=== PATIENT | male | born 1940 | race Caucasian/White ===

== ENCOUNTER 2016-08-07 06:43 | Day surgery (SDC) | payer MEDICARE, OTHER ==
[2016-08-07] MEDS ORDERED: PHENYLEPHRINE 2.5% OPHTH 2 ML DROPS ONE (06:49)
[2016-08-07] MEDS ORDERED: PHENYLEPHRINE 2.5% OPHTH 2 ML DROPS OPTH ONE (07:00)
[2016-08-07] MEDS ORDERED: PROPARACAINE 0.5% OPHTH DROPS 15 ML OPTH ONE (07:00)
[2016-08-07] MEDS ORDERED: KETOROLAC 0.45% OPHTH DROPS OPTH ONE (07:00)
[2016-08-07] MEDS ORDERED: CYCLOPENTOLATE 1% OPHTH DROPS 2 ML OPTH ONE (07:00)
[2016-08-07] MEDS ORDERED: LACTATED RINGERS 500 ML IV ONE (07:09)
[2016-08-07] MEDS ORDERED: LIDOCAINE-MPF 2% 5 ML VIAL IM ONE (08:06)
[2016-08-07] MEDS ORDERED: PROPOFOL 200 MG/20 ML VIAL IVP ONE (08:06)
[2016-08-07] MEDS ORDERED: MIDAZOLAM 2 MG/2 ML VIAL IVP ONE (08:06)
[2016-08-07] MEDS ORDERED: EPINEPHrine 1 MG/ML AMP IVP ONE (08:07)
[2016-08-07] MEDS ORDERED: CHONDR SULF/HYALURONATE SYRINGE IO ONE (08:07)
[2016-08-07] MEDS ORDERED: BRIMONIDINE 0.2% OPHTH DROPS 5 ML OPTH ONE (08:07)
[2016-08-07] MEDS ORDERED: TRIAMCIN/MOXIFLOX/VANCO 1 ML VIAL IO ONE (08:08)
[2016-08-07] MEDS ORDERED: TIMOLOL 0.5% OPHTH DROPS OPTH ONE (08:08)
[2016-08-07] MEDS ORDERED: BSS/LIDOCAINE/EPINEPHRINE 1 ML SYRINGE IO ONE (08:08)
[2016-08-07 08:32] VITALS: BP 108/67
--- NOTE | 2016-08-07 14:41 | OPERATIVE REPORT ---
DATE OF SURGERY: 08/07/2016 00:00:00 PREOPERATIVE DIAGNOSIS: Visually significant cataract, right eye. This is his first cataract surgery. POSTOPERATIVE DIAGNOSIS: Visually significant cataract, right eye. This is his first cataract surgery. NAME OF PROCEDURE: Phacoemulsification with posterior chamber intraocular lens implant, right eye. SURGEON: Yves Duran MD ANESTHESIA: Monitored anesthesia care. COMPLICATIONS: Rupture of the posterior capsule without vitreous loss, requiring placement of a sulcus fixated intraocular lens. OPERATIVE INDICATIONS: This is a 76-year-old man with progressive vision loss in the right eye due to 2+ nuclear sclerotic and 2+ cortical cataract. Best corrected visual acuity was 20/50 with glare to 20/400 in the right eye. Indications for surgery were overall decrease in vision, difficulty seeing words on a computer screen, difficulty reading, difficulty driving in low light or at night, difficulty driving at night because of headlights from other vehicles and street lights, and difficulty with glare or bright lights in any situation. He was consented at length concerning the risks and benefits of cataract surgery after which he expressed a desire to proceed with surgery. OPERATIVE PROCEDURE: The patient was taken into OR #2 and placed under monitored anesthesia care. A surgical time-out was conducted confirming correct patient, correct procedure and correct surgical site. He was placed under the LenSx laser and his eye docked to the laser interface. The laser performed the capsulotomy, lens softening, phaco wounds, and arcuate keratotomy incisions. He was then moved to the operating microscope, given topical anesthesia, and then prepped and draped in the usual sterile fashion. The eye was entered at the 12 and 9 o'clock positions. Intracameral Shugarcaine was injected into the anterior chamber, followed by Viscoat. The capsulorrhexis flap created by the LenSx laser was removed from the anterior chamber. The nucleus was hydrodissected; however, during hydrodissection there was a noticeable drop in the crystalen lens, usually indicative of blowout of the posterior capsule. However, the lens was prolapsed out of the capsule, pulled into the iris plane and the nucleus was phacoemulsified. There was thick cortex remaining in the capsule fornices but it was obvious that there was a large rupture in the posterior capsule. The rest of the cortex was not attempted to be removed and, instead, Provisc was injected into the ciliary sulcus and a 3-piece IOL of 21.5 diopters was injected into the ciliary sulcus. At no time was vitreous noticed to be coming from the posterior chamber into the anterior chamber. Approximately 0.8 mL of a mixture of triamcinolone, moxifloxacin and vancomycin was injected subconjunctivally in the superior quadrant for infection and inflammation prophylaxis. I/A was used to evacuate the viscoelastic materials from the anterior chamber and again no vitreous was noted to be coming into the anterior chamber. The eye was inflated to physiologic pressure using balanced salt solution and found to be watertight. The patient was taken from the operating room in good condition, informed of the posterior capsular rupture, and given postoperative instructions. JOB #: [id number] EXT JOB #:[id number]
== END 2016-08-07 06:44 | disposition home or self-care (01) ==
LOC: SDS 06:43
PROVIDERS: ATTEND Ophthalmology
PROC: 08RK3JZ Replacement of Left Lens with Synthetic Substitute, Percutaneous Approach (ICD-10-PCS; principal; 2016-08-07 08:00)
DX: H25.812 Combined forms of age-related cataract, left eye (principal); J44.9 Chronic obstructive pulmonary disease, unspecified; I10 Essential (primary) hypertension; E78.00 Pure hypercholesterolemia, unspecified; I25.10 Atherosclerotic heart disease of native coronary artery without angina pectoris; Z87.891 Personal history of nicotine dependence; Z83.511 Family history of glaucoma; Z82.49 Family history of ischemic heart disease and other diseases of the circulatory system; Z79.82 Long term (current) use of aspirin
CPT/HCPCS: 66984; A9270; V2632

== ENCOUNTER 2016-12-23 13:03 | Outpatient (CLI) | payer MEDICARE, OTHER | END 2016-12-23 13:04 | disposition home or self-care (01) | LOC: SC 13:03 | PROVIDERS: ATTEND Internal Medicine Pulmonary Disease | DX: G47.30 Sleep apnea, unspecified (principal); G47.10 Hypersomnia, unspecified; R06.83 Snoring; G47.8 Other sleep disorders | CPT/HCPCS: 99203; G0463; 99212 ==

== ENCOUNTER 2017-04-21 10:34 | Outpatient (CLI) | payer MEDICARE, OTHER | END 2017-04-21 10:35 | disposition home or self-care (01) | LOC: SC 10:34 | PROVIDERS: ATTEND Nurse Practitioner Family | DX: G47.30 Sleep apnea, unspecified (principal); G47.10 Hypersomnia, unspecified; R06.83 Snoring | CPT/HCPCS: 99214; G0463; 99212 ==

== ENCOUNTER 2017-08-05 08:15 | Outpatient (CLI) | payer MEDICARE, OTHER ==
[2017-08-05 12:36] LABS: BASOPHILS % (AUTO) 0.7 %; EOSINOPHILS # (AUTO) 0.1 10^3/uL (0.0-0.7); EOSINOPHILS % (AUTO) 1.8 %; HGB - HEMOGLOBIN 15.9 g/dL (14.0-18.0); LYMPHOCYTES # (AUTO) 1.8 10^3/uL (1.5-3.5); LYMPHOCYTES % (AUTO) 28.9 %; MEAN CORPUSCULAR HEMOGLOBIN 32.3 pg (27.0-31.0); MEAN CORPUSCULAR HGB CONC 33.4 g/dL (32.0-36.0); MEAN CORPUSCULAR VOLUME 96.8 fL (80.0-94.0); MEAN PLATELET VOLUME 9.9 fL (7.4-11.4); MONOCYTES # (AUTO) 0.6 10^3/uL (0.0-1.0); NEUTROPHILS # (AUTO) 3.6 10^3/uL (1.5-6.6); NEUTROPHILS % (AUTO) 58.6 %; PLT - PLATELET COUNT 181 10^3/uL (130-450); RED BLOOD COUNT 4.92 10^6/uL (4.70-6.10); RED CELL DISTRIBUTION WIDTH 13.8 % (12.0-15.0); WHITE BLOOD COUNT 6.1 x10^3/uL (4.8-10.8)
[2017-08-05 12:45] LABS: CALCIUM 8.7 mg/dL (8.5-10.3); CREATININE 1.1 mg/dL (0.6-1.2)
== END 2017-08-05 08:16 | disposition home or self-care (01) ==
LOC: LAB.WCP 08:15
PROVIDERS: ATTEND Family Medicine
DX: I10 Essential (primary) hypertension (principal); E78.5 Hyperlipidemia, unspecified; R10.9 Unspecified abdominal pain
CPT/HCPCS: 36415; 80048; 85025

== ENCOUNTER 2018-05-14 15:01 | Outpatient (CLI) | payer MEDICARE, OTHER ==
--- NOTE | 2018-05-14 15:53 | XRAY Report ---
Reason: BACK PAIN,CHRONIC Procedure Date: 05/14/2018 Accession Number: [id number] / [id number] Procedure: WCP - Lumbar Spine 2 View CPT Code: FULL RESULT: EXAM: LUMBOSACRAL SPINE RADIOGRAPHY EXAM DATE: 05/14/2018 03:18 PM. CLINICAL HISTORY: Back pain, chronic. COMPARISONS: XR LUMBOSACRAL SPINE 4 VIEWS 05/18/2008 11:48 AM. TECHNIQUE: 2 views. FINDINGS: Alignment: Compared to 2008 there is significant interval increase in levoconvex thoracolumbar scoliosis centered about L2, now at least moderate. No listhesis. Bones: 4 qvj-bqv-zsfocar lumbar vertebral bodies are present, vestigial ribs as seen on L1. No fractures or bone lesions. Disks: Disk space heights are mostly maintained. Facets: Significant multilevel facet arthropathy. Sacroiliac Joints: Unremarkable. Soft Tissues: Normal. The visualized bowel gas pattern is normal. IMPRESSION: Significant interval increase in thoracolumbar scoliosis. RADIA
== END 2018-05-14 15:02 | disposition home or self-care (01) ==
LOC: DI.WCP 15:01
PROVIDERS: ATTEND Physician Assistant
DX: M41.85 Other forms of scoliosis, thoracolumbar region (principal)
CPT/HCPCS: 72100

== ENCOUNTER 2018-11-14 21:04 | Outpatient (CLI) | payer MEDICARE, OTHER | END 2018-11-14 21:05 | disposition short-term general hospital (02) | LOC: EMS 21:04 | PROVIDERS: ATTEND Surgery | DX: R10.32 Left lower quadrant pain (principal); R39.198 Other difficulties with micturition | CPT/HCPCS: A0425; A0429; A0888 ==

== ENCOUNTER 2019-04-08 08:20 | Outpatient (CLI) | payer MEDICARE, OTHER ==
[2019-04-08 13:59] LABS: ALBUMIN 4.4 g/dL (3.2-5.5); ALBUMIN/GLOBULIN RATIO 1.6 (1.0-2.2); ALKALINE PHOSPHATASE 61 IU/L (42-121); ALT ALANINE AMINOTRANSFERASE 18 IU/L (10-60); AST ASPARTATE AMINOTRANSFERASE 22 IU/L (10-42); BILIRUBIN,TOTAL 1.5 mg/dL (0.2-1.0); BUN - BLOOD UREA NITROGEN 26 mg/dL (6-20); CARBON DIOXIDE - CO2 26 mmol/L (21-32); CHLORIDE 106 mmol/L (101-111); CHOL/HDL RATIO 2.6 (<5.0); CHOLESTEROL 166 mg/dL; CREATININE 1.2 mg/dL (0.6-1.2); GFR - MDRD 58 (>89); GLUCOSE 102 mg/dL (70-100); HDL CHOLESTEROL 64 mg/dL; LDL CHOLESTEROL,CALCULATED 82 mg/dL; LDL/HDL RATIO 1.3 (<3.6); SODIUM 138 mmol/L (135-145); TOTAL PROTEIN 7.1 g/dL (6.7-8.2); VLDL CHOLESTEROL 20 mg/dL
== END 2019-04-08 23:59 | disposition home or self-care (01) ==
LOC: LAB.WCP 08:20
PROVIDERS: ATTEND Family Medicine
DX: I10 Essential (primary) hypertension (principal); E78.5 Hyperlipidemia, unspecified
CPT/HCPCS: 36415; 80053; 80061; 83721; 84443

== ENCOUNTER 2019-07-23 03:22 | Outpatient (CLI) | payer MEDICARE, OTHER | END 2019-07-23 03:23 | disposition short-term general hospital (02) | LOC: EMS 03:22 | PROVIDERS: ATTEND Surgery | DX: R10.10 Upper abdominal pain, unspecified (principal); R50.9 Fever, unspecified; R06.02 Shortness of breath; R05 Cough | CPT/HCPCS: A0425; A0429; A0888 ==

== ENCOUNTER 2019-08-16 14:02 | Outpatient (CLI) | payer MEDICARE, OTHER ==
--- NOTE | 2019-08-16 15:02 | XRAY Report ---
Reason: COPD, SITUS INVERSUS, PLEURAL EFFUSION Procedure Date: 08/16/2019 Accession Number: [id number] / [id number] Procedure: WCP - Chest 2 View X-Ray CPT Code: 66786 Final Report FULL RESULT: PROCEDURE: Chest 2 View X-Ray INDICATIONS: COPD, SITUS INVERSUS, PLEURAL EFFUSION TECHNIQUE: 2 view(s) of the chest. COMPARISON: Multiple prior chest radiographs, most recent a chest radiograph obtained 08/01/2019 and [facility] FINDINGS: Decreased size of left pleural effusion, now trace. Improved but not entirely resolved groundglass airspace opacity in the left lung base and medial aspect of the left lung. The right lung and pleural space are clear. 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 IMPRESSION: Improved but not entirely resolved opacity in the left lung base. Continued follow-up recommended to document complete resolution. Left pleural effusion has decreased in size and is now trace. Reviewed by: Gustavo Scott MD on 08/16/2019 3:01 PM PDT Approved by: Gustavo Scott MD on 08/16/2019 3:01 PM PDT Station ID: [id number]
== END 2019-08-16 23:59 | disposition home or self-care (01) ==
LOC: DI.WCP 14:02
PROVIDERS: ATTEND Family Medicine
DX: J90 Pleural effusion, not elsewhere classified (principal); R91.8 Other nonspecific abnormal finding of lung field; Q89.3 Situs inversus
CPT/HCPCS: 71046

== ENCOUNTER 2019-10-15 12:45 | Outpatient (CLI) | payer MEDICARE, OTHER ==
--- NOTE | 2019-10-15 23:17 | CT Report ---
PROCEDURE: CHEST WO INDICATIONS: COPD, PLEURAL EFFUSION, PLEURAL ABSCESS, SITUS LA TECHNIQUE: Noncontrast 5 mm thick sections acquired from the pulmonary apices to the posterior costophrenic angl es. 7 mm thick coronal and sagittal MIP reformats were then acquired. For radiation dose reduction, the following was used: automated exposure control, adjustment of mA and/or kV according to patient size. COMPARISON: Chest radiographs dated 08/16/2019 and 09/15/2019 FINDINGS: Image quality: Excellent. Lungs and pleura: No acute air space opacities. There is mild pleural thickening and likely scarring involving the posterior, periphery of the left lower lobe. Possible trace left pleural effusion. The re is associated subsegmental atelectasis of the left lower lobe. No evidence for pleural abscess or loculated pleural effusion. Bilateral pulmonary emphysematous change. No pneumothorax. Central and p eripheral airways are patent and normal in caliber. Mediastinum: There is situs inversus. Heart size is normal. No pericardial effusion. No mediastinal adenopathy by size criteria. There is enlargement of the proximal aspect ascending thoracic aorta wi th the aortic root measuring approximately 5.5 x 5.0 cm in transverse dimension measured on axial kendrick ge 27, series 3. The central pulmonary arteries are normal in size. Esophagus is normal in caliber. No hiatal hernia. Bones and chest wall: No suspicious bony lesions. No vertebral body compression fractures. No axil margareth or supraclavicular adenopathy by size criteria. The thyroid is normal in size. Abdomen: There are bilateral punctate nonobstructing nephroliths. Multiple scattered subcentimeter h epatic hypodensities are incompletely characterized but likely represent cysts versus hemangiomas. Re mainder of the visualized upper abdominal solid organs and bowel loops appear normal in the absence o f contrast. IMPRESSION: 1. Mild pleural thickening and likely scarring involving the posterior, peripheral margins of the lef t lung base. No evidence for pleural abscess or loculated pleural effusion. Subsegmental atelectasis is also present. 2. Pulmonary emphysematous change. 3. 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 [facility] clinical and imaging surveillance. 4. Nonobstructive bilateral nephrolithiasis. 5. Multiple scattered hepatic hypodensities which are too small to accurately characterize but likely represent cysts versus hemangiomas. Reviewed by: Donnell Brown MD on 10/15/2019 11:16 PM PDT Approved by: Donnell Brown MD on 10/15/2019 11:16 PM PDT Station ID: [id number]
== END 2019-10-15 12:46 | disposition home or self-care (01) ==
LOC: DI 12:45
PROVIDERS: ATTEND Family Medicine
DX: J43.9 Emphysema, unspecified (principal); Q89.3 Situs inversus; J90 Pleural effusion, not elsewhere classified; J86.9 Pyothorax without fistula; N20.0 Calculus of kidney; I71.4 Abdominal aortic aneurysm, without rupture
CPT/HCPCS: 71250

== ENCOUNTER 2019-10-16 20:46 | Outpatient (CLI) | payer MEDICARE, OTHER | END 2019-10-16 20:47 | disposition short-term general hospital (02) | LOC: EMS 20:46 | PROVIDERS: ATTEND Surgery | DX: R07.9 Chest pain, unspecified (principal) | CPT/HCPCS: A0425; A0427 ==

== ENCOUNTER 2020-03-12 13:05 | Outpatient (CLI) | payer MEDICARE, OTHER ==
--- NOTE | 2020-03-12 13:37 | SLEEP CARE CONSULTATION ---
Information from patient questionnaire entered by Glenn Mabry. I have reviewed and concur with the information entered by Glenn Mabry. This document represents the service I personally performed and the decisions made by me, Anna Calles MD, [facility]. History of Present Illness Service Date and Time: 03/12/2020 1305 Previous diagnosis: Other (No significant sleep disordered breathing) AHI: 4.9 Reason for follow up: annual (Last seen 04/2017, no CPAP) Year and Where: 2018 [facility] additional information: HPI: Mr. Cordero returned for follow up of loud snore. He had a sleep study here in 2018 that was negative for significant sleep disordered breathing (the AHI was 4.9 and andrzej oxygen saturation was 88%). Because supine AHI was elevated at 22.5, the patient was advised to not sleep on his back. He states that he now sleeps mostly on his back because of should pain on both sides. He complains of waking up frequently at night and feeling sleepy during the day. Subjective Initial [place] Sleepiness Scale score: 8 (in 2017) Current [place] Sleepiness Scale score: 8 Allergies and Home Medications Drug allergies reviewed: Yes Home medication list reviewed: Yes Review of Systems Review of systems same as previous: Yes Physical Exam Vital signs obtained and entered by: To minimize the risk of COVID-19 exposure, detailed exam was not performed. Height: 6 ft 1 in Weight: 180 lb Body Mass Index: 23.7 BMI Classification: Healthy weight Impression and Plan IMPRESSION: 1. Possible obstructive sleep apnea-hypopnea because he now sleep mostly on his back. Another sleep study will be performed. He would like a home sleep apnea test (HSAT) because he could not sleep much the last time he was here for the in-laboratory polysomnography. With moderately elevated supine AHI of 22.5, I believe the home sleep apnea test (HSAT) is adequate in diagnosing the sleep-disordered breathing. PLAN: 1. Order a home sleep apnea test (HSAT). 2. Return for a follow up after the test. Visit Type: In Office Time Spent with Patient (minutes): 15 Provider Statement: I spent 100% of the Face to Face Visit with the patient with greater than 50% spent counseling the patient and coordination of care.
== END 2020-03-12 13:06 | disposition home or self-care (01) ==
LOC: SC 13:05
PROVIDERS: ATTEND Internal Medicine Pulmonary Disease
DX: R06.83 Snoring (principal)
CPT/HCPCS: 99212; G0463

== ENCOUNTER 2020-03-30 08:00 | Outpatient (CLI) | payer MEDICARE, OTHER ==
[2020-03-30 12:05] LABS: BASOPHILS % (AUTO) 0.8 %; EOSINOPHILS # (AUTO) 0.1 10^3/uL (0.0-0.7); EOSINOPHILS % (AUTO) 2.1 %; HGB - HEMOGLOBIN 16.1 g/dL (14.0-18.0); LYMPHOCYTES # (AUTO) 1.9 10^3/uL (1.5-3.5); MEAN CORPUSCULAR HEMOGLOBIN 31.9 pg (27.0-31.0); MEAN CORPUSCULAR HGB CONC 32.3 g/dL (32.0-36.0); MEAN PLATELET VOLUME 11.1 fL (7.4-11.4); MONOCYTES # (AUTO) 0.6 10^3/uL (0.0-1.0); MONOCYTES % (AUTO) 10.3 %; NEUTROPHILS # (AUTO) 2.8 10^3/uL (1.5-6.6); NEUTROPHILS % (AUTO) 51.6 %; PLT - PLATELET COUNT 208 10^3/uL (130-450); RED BLOOD COUNT 5.04 10^6/uL (4.70-6.10); RED CELL DISTRIBUTION WIDTH 13.7 % (12.0-15.0); WHITE BLOOD COUNT 5.3 x10^3/uL (4.8-10.8)
[2020-03-30 12:33] LABS: ALBUMIN 4.4 g/dL (3.2-5.5); ALKALINE PHOSPHATASE 61 IU/L (42-121); ALT ALANINE AMINOTRANSFERASE 20 IU/L (10-60); AST ASPARTATE AMINOTRANSFERASE 19 IU/L (10-42); BILIRUBIN,TOTAL 1.3 mg/dL (0.2-1.0); BUN - BLOOD UREA NITROGEN 26 mg/dL (6-20); CALCIUM 9.4 mg/dL (8.5-10.3); CARBON DIOXIDE - CO2 26 mmol/L (21-32); CHLORIDE 102 mmol/L (101-111); CHOL/HDL RATIO 2.5 (<5.0); CHOLESTEROL 184 mg/dL; CREATININE 1.1 mg/dL (0.6-1.2); GLUCOSE 93 mg/dL (70-100); HDL CHOLESTEROL 73 mg/dL; LDL CHOLESTEROL,CALCULATED 93 mg/dL; LDL/HDL RATIO 1.3 (<3.6); TOTAL PROTEIN 6.6 g/dL (6.7-8.2); VLDL CHOLESTEROL 18 mg/dL
== END 2020-03-30 23:59 | disposition home or self-care (01) ==
LOC: LAB.WCP 08:00
PROVIDERS: ATTEND Family Medicine
DX: I10 Essential (primary) hypertension (principal); E78.5 Hyperlipidemia, unspecified
CPT/HCPCS: 36415; 80053; 80061; 83721; 85025

== ENCOUNTER 2020-08-13 14:15 | Outpatient (CLI) | payer MEDICARE, OTHER ==
--- NOTE | 2020-08-13 16:47 | XRAY Report ---
PROCEDURE: Chest 2 View X-Ray INDICATIONS: COPD TECHNIQUE: 2 view(s) of the chest. COMPARISON: None. FINDINGS: Surgical changes and devices: Stable over time. Lungs and pleura: No pleural effusions or pneumothorax. Lungs are relatively hyperexpanded consiste nt with COPD.. Mediastinum: Mediastinal contours are abnormal, with situs inversus totalis appearance. Heart size is normal. Bones and chest wall: No suspicious bony abnormalities. Soft tissues appear unremarkable. IMPRESSION: Situs inversus morphology of the chest, COPD, no pneumonia seen. Prior sternotomy wires. Reviewed by: Ludin Shoemaker MD on 08/13/2020 4:46 PM PDT Approved by: Ludin Shoemaker MD on 08/13/2020 4:46 PM PDT Station ID: [id number]
== END 2020-08-13 14:16 | disposition home or self-care (01) ==
LOC: DI.N 14:15
PROVIDERS: ATTEND Family Medicine
DX: J44.9 Chronic obstructive pulmonary disease, unspecified (principal)

== ENCOUNTER 2020-10-05 08:00 | Outpatient (CLI) | payer MEDICARE, OTHER ==
[2020-10-05 11:47] LABS: BASOPHILS # (AUTO) 0.1 10^3/uL (0.0-0.1); BASOPHILS % (AUTO) 0.9 %; EOSINOPHILS # (AUTO) 0.1 10^3/uL (0.0-0.7); EOSINOPHILS % (AUTO) 1.5 %; HCT - HEMATOCRIT 47.6 % (42.0-52.0); HGB - HEMOGLOBIN 15.5 g/dL (14.0-18.0); LYMPHOCYTES # (AUTO) 1.9 10^3/uL (1.5-3.5); LYMPHOCYTES % (AUTO) 35.9 %; MEAN CORPUSCULAR HEMOGLOBIN 32.1 pg (27.0-31.0); MEAN CORPUSCULAR HGB CONC 32.6 g/dL (32.0-36.0); MEAN CORPUSCULAR VOLUME 98.6 fL (80.0-94.0); MEAN PLATELET VOLUME 11.5 fL (7.4-11.4); MONOCYTES # (AUTO) 0.6 10^3/uL (0.0-1.0); MONOCYTES % (AUTO) 10.4 %; NEUTROPHILS # (AUTO) 2.7 10^3/uL (1.5-6.6); NEUTROPHILS % (AUTO) 51.1 %; PLT - PLATELET COUNT 200 10^3/uL (130-450); RED BLOOD COUNT 4.83 10^6/uL (4.70-6.10); RED CELL DISTRIBUTION WIDTH 13.3 % (12.0-15.0); WHITE BLOOD COUNT 5.3 x10^3/uL (4.8-10.8)
[2020-10-05 12:27] LABS: BUN - BLOOD UREA NITROGEN 27 mg/dL (6-20); CALCIUM 9.1 mg/dL (8.5-10.3); CARBON DIOXIDE - CO2 25 mmol/L (21-32); CHLORIDE 105 mmol/L (101-111); CHOL/HDL RATIO 2.4 (<5.0); CHOLESTEROL 166 mg/dL; CREATININE 1.1 mg/dL (0.6-1.2); GFR - MDRD 64 (>89); GLUCOSE 98 mg/dL (70-100); HDL CHOLESTEROL 68 mg/dL; LDL CHOLESTEROL,CALCULATED 84 mg/dL; LDL/HDL RATIO 1.2 (<3.6); POTASSIUM 3.9 mmol/L (3.5-5.0); SODIUM 140 mmol/L (135-145); TRIGLYCERIDES 70 mg/dL; VLDL CHOLESTEROL 14 mg/dL
== END 2020-10-05 23:59 | disposition home or self-care (01) ==
LOC: LAB.WCP 08:00
PROVIDERS: ATTEND Internal Medicine Interventional Cardiology
DX: E78.2 Mixed hyperlipidemia (principal); R06.00 Dyspnea, unspecified
CPT/HCPCS: 36415; 80048; 80061; 83721; 84443; 85025

== ENCOUNTER 2021-03-20 11:41 | Outpatient (CLI) | payer MEDICARE, OTHER ==
[2021-03-20 18:34] LABS: BASOPHILS % (AUTO) 0.7 %; EOSINOPHILS # (AUTO) 0.1 10^3/uL (0.0-0.7); EOSINOPHILS % (AUTO) 1.9 %; HCT - HEMATOCRIT 50.1 % (42.0-52.0); HGB - HEMOGLOBIN 16.2 g/dL (14.0-18.0); LYMPHOCYTES # (AUTO) 2.1 10^3/uL (1.5-3.5); LYMPHOCYTES % (AUTO) 38.2 %; MEAN CORPUSCULAR HEMOGLOBIN 31.8 pg (27.0-31.0); MEAN CORPUSCULAR HGB CONC 32.3 g/dL (32.0-36.0); MEAN CORPUSCULAR VOLUME 98.4 fL (80.0-94.0); MEAN PLATELET VOLUME 12.2 fL (7.4-11.4); MONOCYTES # (AUTO) 0.5 10^3/uL (0.0-1.0); MONOCYTES % (AUTO) 8.4 %; NEUTROPHILS # (AUTO) 2.7 10^3/uL (1.5-6.6); NEUTROPHILS % (AUTO) 50.4 %; PLT - PLATELET COUNT 194 10^3/uL (130-450); RED BLOOD COUNT 5.09 10^6/uL (4.70-6.10); RED CELL DISTRIBUTION WIDTH 13.6 % (12.0-15.0); WHITE BLOOD COUNT 5.4 x10^3/uL (4.8-10.8)
[2021-03-20 19:17] LABS: ALBUMIN 4.5 g/dL (3.2-5.5); ALBUMIN/GLOBULIN RATIO 1.6 (1.0-2.2); ALKALINE PHOSPHATASE 75 IU/L (42-121); ALT ALANINE AMINOTRANSFERASE 22 IU/L (10-60); AST ASPARTATE AMINOTRANSFERASE 25 IU/L (10-42); BILIRUBIN,TOTAL 1.4 mg/dL (0.2-1.0); BUN - BLOOD UREA NITROGEN 23 mg/dL (6-20); CALCIUM 8.9 mg/dL (8.5-10.3); CARBON DIOXIDE - CO2 25 mmol/L (21-32); CHLORIDE 103 mmol/L (101-111); CHOL/HDL RATIO 2.1 (<5.0); CHOLESTEROL 152 mg/dL; CREATININE 1.1 mg/dL (0.6-1.2); GFR - MDRD 64 (>89); GLUCOSE 98 mg/dL (70-100); HDL CHOLESTEROL 71 mg/dL; LDL CHOLESTEROL,CALCULATED 70 mg/dL; POTASSIUM 4.7 mmol/L (3.5-5.0); SODIUM 137 mmol/L (135-145); TOTAL PROTEIN 7.4 g/dL (6.7-8.2); TRIGLYCERIDES 53 mg/dL; VLDL CHOLESTEROL 11 mg/dL
== END 2021-03-20 11:42 | disposition home or self-care (01) ==
LOC: LAB.N 11:41
PROVIDERS: ATTEND Internal Medicine Interventional Cardiology
DX: E78.5 Hyperlipidemia, unspecified (principal); I49.3 Ventricular premature depolarization; Q89.3 Situs inversus; Z86.79 Personal history of other diseases of the circulatory system; Z98.890 Other specified postprocedural states
CPT/HCPCS: 36415; 80053; 80061; 83721; 85025

== ENCOUNTER 2022-04-23 08:00 | Outpatient (CLI) | payer MEDICARE, OTHER | END 2022-04-23 23:59 | disposition home or self-care (01) | LOC: LAB 08:00 | PROVIDERS: ATTEND Physician Assistant Medical | DX: N39.0 Urinary tract infection, site not specified (principal) | CPT/HCPCS: 87086; 87181 ==

== ENCOUNTER 2022-05-23 08:57 | Outpatient (CLI) | payer MEDICARE, OTHER ==
[2022-05-23 12:05] LABS: BUN - BLOOD UREA NITROGEN 24 mg/dL (6-20); CALCIUM 8.9 mg/dL (8.5-10.3); CARBON DIOXIDE - CO2 27 mmol/L (21-32); CHLORIDE 108 mmol/L (101-111); CHOL/HDL RATIO 2.2 (<5.0); CHOLESTEROL 154 mg/dL; GFR - MDRD 71 (>89); GLUCOSE 113 mg/dL (70-100); HDL CHOLESTEROL 70 mg/dL; LDL CHOLESTEROL,CALCULATED 73 mg/dL; POTASSIUM 4.1 mmol/L (3.5-5.0); SODIUM 139 mmol/L (135-145); TRIGLYCERIDES 53 mg/dL; VLDL CHOLESTEROL 11 mg/dL
== END 2022-05-23 23:59 | disposition home or self-care (01) ==
LOC: LAB.N 08:57
PROVIDERS: ATTEND Internal Medicine Interventional Cardiology
DX: E78.5 Hyperlipidemia, unspecified (principal); I10 Essential (primary) hypertension
CPT/HCPCS: 36415; 80048; 80061; 83721

== ENCOUNTER 2022-08-06 10:01 | Outpatient (CLI) | payer MEDICARE, OTHER ==
[2022-08-06 11:57] LABS: BASOPHILS # (AUTO) 0.1 10^3/uL (0.0-0.1); BASOPHILS % (AUTO) 1.1 %; EOSINOPHILS # (AUTO) 0.1 10^3/uL (0.0-0.7); EOSINOPHILS % (AUTO) 2.3 %; HCT - HEMATOCRIT 49.3 % (42.0-52.0); HGB - HEMOGLOBIN 16.1 g/dL (14.0-18.0); LYMPHOCYTES # (AUTO) 2.1 10^3/uL (1.5-3.5); MEAN CORPUSCULAR HEMOGLOBIN 31.3 pg (27.0-31.0); MEAN CORPUSCULAR HGB CONC 32.7 g/dL (32.0-36.0); MEAN CORPUSCULAR VOLUME 95.9 fL (80.0-94.0); MEAN PLATELET VOLUME 11.3 fL (7.4-11.4); MONOCYTES # (AUTO) 0.6 10^3/uL (0.0-1.0); MONOCYTES % (AUTO) 10.9 %; NEUTROPHILS # (AUTO) 2.4 10^3/uL (1.5-6.6); NEUTROPHILS % (AUTO) 45.5 %; PLT - PLATELET COUNT 236 10^3/uL (130-450); RED BLOOD COUNT 5.14 10^6/uL (4.70-6.10); RED CELL DISTRIBUTION WIDTH 13.7 % (12.0-15.0); WHITE BLOOD COUNT 5.3 x10^3/uL (4.8-10.8)
[2022-08-06 12:23] LABS: ALBUMIN 4.2 g/dL (3.2-5.5); ALBUMIN/GLOBULIN RATIO 1.4 (1.0-2.2); ALKALINE PHOSPHATASE 53 IU/L (42-121); ALT ALANINE AMINOTRANSFERASE 19 IU/L (10-60); AST ASPARTATE AMINOTRANSFERASE 20 IU/L (10-42); BILIRUBIN,TOTAL 1.1 mg/dL (0.2-1.0); BUN - BLOOD UREA NITROGEN 22 mg/dL (6-20); CALCIUM 8.9 mg/dL (8.5-10.3); CARBON DIOXIDE - CO2 28 mmol/L (21-32); CHLORIDE 105 mmol/L (101-111); CHOL/HDL RATIO 2.8 (<5.0); CHOLESTEROL 238 mg/dL; CREATININE 1.1 mg/dL (0.6-1.2); GFR - MDRD 64 (>89); GLUCOSE 109 mg/dL (70-100); HDL CHOLESTEROL 84 mg/dL; LDL CHOLESTEROL,CALCULATED 136 mg/dL; LDL/HDL RATIO 1.6 (<3.6); POTASSIUM 4.4 mmol/L (3.5-5.0); SODIUM 139 mmol/L (135-145); TOTAL PROTEIN 7.1 g/dL (6.7-8.2); TRIGLYCERIDES 92 mg/dL; VLDL CHOLESTEROL 18 mg/dL
[2022-08-06 12:27] LABS: THYROID STIMULATING HORMONE 3.98 uIU/mL (0.34-5.60)
== END 2022-08-06 10:02 | disposition home or self-care (01) ==
LOC: LAB.N 10:01
PROVIDERS: ATTEND Nurse Practitioner Family
DX: I10 Essential (primary) hypertension (principal); E78.5 Hyperlipidemia, unspecified
CPT/HCPCS: 36415; 80053; 80061; 83721; 84443; 85025

== ENCOUNTER 2023-03-19 09:08 | Outpatient (CLI) | payer MEDICARE, OTHER ==
[2023-03-19 12:36] LABS: BUN - BLOOD UREA NITROGEN 19 mg/dL (6-20); CALCIUM 9.1 mg/dL (8.5-10.3); CARBON DIOXIDE - CO2 27 mmol/L (21-32); CHLORIDE 106 mmol/L (101-111); CHOL/HDL RATIO 2.1 (<5.0); CHOLESTEROL 139 mg/dL; CREATININE 1.1 mg/dL (0.6-1.3); GFR - MDRD 64 (>89); GLUCOSE 105 mg/dL (74-104); HDL CHOLESTEROL 67 mg/dL; LDL CHOLESTEROL,CALCULATED 56 mg/dL; LDL/HDL RATIO 0.8 (<3.6); POTASSIUM 4.3 mmol/L (3.5-4.5); SODIUM 139 mmol/L (135-145); TRIGLYCERIDES 82 mg/dL (48-352); VLDL CHOLESTEROL 16 mg/dL
[2023-03-19 12:45] LABS: THYROID STIMULATING HORMONE 3.72 uIU/mL (0.34-5.60)
== END 2023-03-19 09:09 | disposition home or self-care (01) ==
LOC: LAB.N 09:08
PROVIDERS: ATTEND Internal Medicine Interventional Cardiology
DX: E78.2 Mixed hyperlipidemia (principal); R00.1 Bradycardia, unspecified; Z98.890 Other specified postprocedural states; Z86.79 Personal history of other diseases of the circulatory system
CPT/HCPCS: 36415; 80048; 80061; 83721; 84443